=== PATIENT | male | born 1990 | race Asian ===

== ENCOUNTER → 2017-04-05 | Outpatient (CLI) | payer OTHER ==
[~2017-04-05] MED LIST: IBUP-1277 PO
--- NOTE | 2017-04-05 14:25 | DIAGNOSTIC IMAGING REPORT ---
TESTICULAR ULTRASOUND HISTORY: N50.9 Testicular lump no latex allergy COMPARISON: None. FINDINGS: Right testis: 3.2 x 2.2 x 1.5 cm. There are no intratesticular masses. Normal color flow. Trace hydrocele. The epididymis is unremarkable. Left testis: 3.4 x 2.1 x 1.4 cm. There are no intratesticular masses. Normal color flow. Trace hydrocele. A 5 mm epididymal head cyst. IMPRESSION: 1. Normal bilateral testes. 2. A 5 mm left epididymal head cyst. Electronically signed by: Brandon Martin M.D. 04/05/2017 2:24 PM Dictated Date/Time: 04/05/2017 2:22 PM
== END | disposition home or self-care (01) ==
LOC: C.ULTR 13:11
PROVIDERS: ATTEND Urology
DX: N50.3 Cyst of epididymis (principal)

== ENCOUNTER 2020-02-01 16:37 | Inpatient (IN) ==
--- OUTSIDE RECORDS SUMMARY | 2020-02-01 16:40 | External Medical Summary | Continuity of Care Document ---
:1990 Author Name Keon Avila, Provider Address Unavailable Unavailable , Care Team Providers Name Role Phone Unavailable Unavailable Unavailable PCP, NO Unavailable Unavailable Problems Testicular lump (608.89) (N50.89) Allergies and Adverse Reactions Allergy history not documented Medications Medications not documented Procedures Procedures not documented Immunizations Immunizations not documented Family History Mother Family history of diabetes mellitus (V18.0) (Z83.3) Status: Active Family history of hypertension (V17.49) (Z82.49) Status: Act mateo Father Family history of diabetes mellitus (V18.0) (Z83.3) Status: Active Family history of hypertension (V17.49) (Z82.49) Status: Act mateo Grandparent Family history of cardiac disorder (V17.49) (Z82.49) Status: Active Plan of Treatment Planned Observations Planned Goals not documented Results No Known Results Results not documented
[2020-02-01 19:35] LABS: Basophils # (auto) 0.02 K/uL (0-0.2); Basophils % (auto) 0.2 %; Hematocrit (blood only) 57.3 % (42-52); Hemoglobin 19.5 g/dL (14.0-18.0); Immature Granulocytes # (auto) 0.13 K/uL (0.00-0.02); Immature Granulocytes % (auto) 1.6 %; Lymphocytes # (auto) 0.97 K/uL (1.2-3.4); Lymphocytes % (auto) 11.6 %; Mean Corpuscular Hemoglobin 29.2 pg (25-34); Mean Corpuscular Volume 85.9 fL (80-100); Mean Platelet Volume 9.9 fL (7.4-10.4); Monocytes # (auto) 0.34 K/uL (0.11-0.59); Monocytes % (auto) 4.1 %; Neutrophils # (auto) 6.92 K/uL (1.4-6.5); Neutrophils % (auto) 82.5 %; Platelet Count 264 K/uL (130-400); RDW Coefficient of Variation 13.6 % (11.5-14.5); RDW Standard Deviation 42.6 fL (36.4-46.3); Red Blood Count 6.67 M/uL (4.7-6.1); White Blood Count 8.38 K/uL (4.8-10.8)
[2020-02-01] MEDS ORDERED: SODIUM CHLORIDE 0.9% 1000ML 1,000 ML IV STA (19:53)
[2020-02-01] MEDS ORDERED: SODIUM CHLORIDE 0.9% 1000ML 1,000 ML IV ONE (19:53)
[2020-02-01 20:05] LABS: Alanine Aminotransferase 57 U/L (12-78); Albumin Globulin Ratio 1.1 (0.9-2); Alkaline Phosphatase 110 U/L (45-117); Aspartate Aminotransferase 34 U/L (15-37); BUN Creatinine Ratio 7.7 (10-20); Bilirubin,Total 1.3 mg/dl (0.2-1); Blood Urea Nitrogen 14 mg/dl (7-18); Calcium 9.3 mg/dl (8.5-10.1); Carbon Dioxide 13 mmol/L (21-32); Chloride 90 mmol/L (98-107); Creatinine Clr Calc Pharmacy 69.2 ml/min; Est GFR (African American) 56.2; Est GFR (Non-African American) 48.5; Globulin 3.5 gm/dl (2.5-4.0); Glucose 429 mg/dl (70-99); Potassium 4.5 mmol/L (3.5-5.1); Sodium 126 mmol/L (136-145); Total Protein 7.5 gm/dl (6.4-8.2)
[2020-02-01] MEDS ORDERED: SODIUM CHLORIDE 0.9% 500 ML IV ONE (20:10)
[2020-02-01 20:25] LABS: Appearance Urine Clear (Clear); Bacteria Urine Automated Negative (Negative); Bilirubin Urine Negative (Negative); Blood Urine Trace (Negative); Cast Urine Automated 0 /lpf (0-5); Color Urine Yellow; Glucose Urine UA 3+ (Negative); Ketones Urine 4+ (Negative); Leukocyte Esterase Urine Negative (Negative); Nitrite Urine Negative (Negative); Protein Urine 1+ (Negative); RBC Urine Automated 0-4 /hpf (0-4); Specific Gravity Urine 1.034 (1.000-1.030); Urobilinogen Urine Negative (Negative); WBC Urine Automated 0 /hpf (0-5)
[2020-02-01 20:28] LABS: D Dimer 600 ug/L FEU (0-500)
[2020-02-01 20:46] LABS: Creatine Kinase 885 U/L (39-308)
[2020-02-01 20:50] LABS: Troponin I < 0.015 ng/ml (0-0.045)
[2020-02-01] MEDS ORDERED: DKA GOAL RANGE 150-250 mg/dl ONE (20:52)
[2020-02-01] MEDS ORDERED: PHARMACY GLYCEMIC MGMT CONSULT STA ×2 (20:52→22:53)
[2020-02-01] MEDS ORDERED: NORMOSOL-R 1,000 ML IV SCH (21:00)
[2020-02-01] MEDS ORDERED: INSULIN ASPART 100 UNITS/ML 3 ML PEN SC SCH (21:00)
[2020-02-01] MEDS ORDERED: INSULIN REGULAR 250 UNITS in SODIUM CHLORIDE 0.9% 247.5 ML IV SCH (21:00)
--- NOTE | 2020-02-01 21:03 | Emergency Department Note ---
Impression & Plan DKA (diabetic ketoacidoses), Acute dehydration, ISABEL (acute kidney injury) ED Provider Note INFORMANT: Patient ED PROVIDER(S): Norbert Flores MD CHIEF COMPLAINT: Fatigue and visual disturbance PLAN: Disposition: Admitted Condition: Good MEDICAL DECISION MAKING: Patient presented with fatigue, visual disturbance and also noted polydipsia. A work-up was performed and he was found to have findings consistent with DKA with an elevated blood sugar, low CO2, and anion gap. Pseudohyponatremia was noted. He also had a mild elevation of his total CK as well as his creatinine concerning for ISABEL. He was hydrated. Insulin drip was initiated. The patient was informed and hospitalization will be necessary. Discussed the case with Dr. Constantino of internal medicine. The patient was evaluated in the ER admitted for further management. Triage Nursing notes reviewed and agree them. Vital Signs: reviewed and remarkable for hypertension and borderline tachycardia Differential diagnosis: Infection, dehydration, metabolic abnormality, hypo/hyperglycemia, electrolyte disturbance, anemia, hypoxia, cardiac sources, intracerebral event, toxicologic, neurologic, as well as other pathologies. Diagnostics interpreted by me: ECG: Twelve-lead ECG reveals a normal sinus rhythm at [address] and T wave abnormality. No ST elevation or depression. Cardiac Monitoring: None Imaging studies: Chest x-ray. Findings: A chest x-ray was performed and revealed no pneumothorax, effusion, infiltrate, pulmonary edema, free air under the diaphragm, or wide mediastinum. Impression: No acute disease. Consultation(s): Dr. Constantino of internal medicine HPI: The patient is a 30 year old male who presents to the Emergency Room with complaints of fatigue. This started 5 days and is worsening. The patient also notes the following associated symptoms, blurry vision, polydipsia, generalized myalgias, shortness of breath, no energy, increased sleeping. Patient also noted reflux symptoms of chest discomfort which is unusual for him. He did try Pepcid without relief. The patient has found no relieving factors for the fatigue. Current pain is rated as 0/10. Patient does have a family history of diabetes. He also notes he was told he has high blood pressure in the past but is not on any medication for this. Patient denies any Covid exposures. Pt denies LOC, headache, fevers, chills, diaphoresis, neck pain, current chest pain, nausea, vomiting, abdominal pain, back pain, melena, hematochezia, urinary symptoms, numbness, lymphadenopathy, rash, or other complaints. ROS: See above HPI for pertinent positives & negatives. A total of 10 systems reviewed and were otherwise negative. PAST MEDICAL HISTORY:See Below, high blood pressure PAST SURGICAL HISTORY:See Below, patient denies FAMILY HISTORY:See Below SOCIAL HISTORY:See Below, no smoking. [employer] student. HOME MEDICATIONS:See Below ALLERGIES:See Below VITALS:See Below PHYSICAL EXAMINATION: GENERAL: Awake, tired-appearing, in no distress HENT: Normocephalic, atraumatic. Oropharynx unremarkable. EYES: Normal conjunctiva. Sclera non-icteric. NECK: Inspection normal. Non-tender. Supple. No nuchal rigidity. FROM. No masses. RESPIRATORY: Clear to auscultation. No wheezes. No rales. Normal respiratory effort. CARDIAC: Normal rate. Normal rhythm. No murmurs. No rubs. Extremities warm and well perfused. Pulses equal. No JVD. GI: Soft, non-distended. No tenderness to palpation. No rebound or guarding. No masses. RECTAL: Deferred. MUSCULOSKELETAL: Atraumatic. Chest examination reveals no tenderness. The back is symmetrical on inspection without obvious abnormality. There is no CVA tenderness to palpation. No joint edema. LOWER EXTREMITIES: Calves are equal size bilaterally and non-tender. No edema. No discoloration. NEURO: Normal sensorium. No sensory or motor deficits noted. SKIN: No rash or jaundice noted. ED COURSE: Critical Care: I have personally spent greater than 30 minutes of critical care time in the direct management of this patient. This includes bedside care, interpretation of diagnostic studies, and testing, discussion with consultants, patient, and other required patient management activities. These minutes are in excess of all separately billable procedures. Norbert Flores MD Past Med/Surg History Social History Smoking Status: Never smoker Hx Alcohol Use: No Hx Substance Use: No Preferred Language: Syriac Communication Ability: Effective Sword Swallower Required: No Beliefs That Will Affect Care: None Current Living Situation: Alone Current Living Situation Comment: Appartment Other Information That Helps Us Care for You: No Feels Safe at Home: Yes Safety Concerns: Feels Safe At This Time Assistive Devices: None Allergies Allergies Allergy/AdvReac Type Severity Reaction Status Date / Time No Known Allergies Allergy Unverified 02/01/20 20:55 Home Meds Home Medications Medication Instructions Recorded Confirmed methylphenidate HCl [Ritalin SR] See Rx Instructions .ROUTE .COMPLEX 02/01/20 02/01/20 Results & Data (ED) Vital Signs Vital Signs - 24 hr 02/01/20 17:24 02/01/20 19:23 02/01/20 19:30 Temperature 37.1 C Temperature Source Oral Pulse Rate 114 H 99 H 98 H Respiratory Rate 18 21 21 Blood Pressure 160/109 H 183/109 H 187/108 H Blood Pressure Mean 126 131 122 Pulse Oximetry 97 100 100 Oxygen Delivery Method Room Air Sepsis Recent Fever Within 48 Hours No Sepsis New/Unexplained Change in Mental Status N/A Sepsis Action Taken by Nursing No Action Required 02/01/20 20:00 02/01/20 20:30 02/01/20 22:00 Temperature Temperature Source Pulse Rate 96 H 100 H 97 H Respiratory Rate 25 H 18 24 Blood Pressure 184/101 H 170/94 H 170/90 H Blood Pressure Mean 120 112 111 Pulse Oximetry 99 100 99 Oxygen Delivery Method Sepsis Recent Fever Within 48 Hours Sepsis New/Unexplained Change in Mental Status Sepsis Action Taken by Nursing 02/01/20 22:36 Temperature Temperature Source Pulse Rate 102 H Respiratory Rate 24 Blood Pressure 164/85 H Blood Pressure Mean 108 Pulse Oximetry 100 Oxygen Delivery Method Sepsis Recent Fever Within 48 Hours Sepsis New/Unexplained Change in Mental Status Sepsis Action Taken by Nursing Laboratory Data Result diagrams: 02/01/20 19:25 02/01/20 23:02 Lab Results 02/01/20 02/01/20 02/01/20 Range/Units 19:25 19:25 19:25 WBC 8.38 (4.8-10.8) K/uL RBC 6.67 H (4.7-6.1) M/uL Hgb 19.5 H (14.0-18.0) g/dL Hct 57.3 H (42-52) % MCV 85.9 (80-100) fL MCH 29.2 (25-34) pg MCHC 34.0 (32-36) g/dL RDW Std Deviation 42.6 (36.4-46.3) fL RDW Coeff of Victor Hugo 13.6 (11.5-14.5) % Plt Count 264 (130-400) K/uL MPV 9.9 (7.4-10.4) fL Immature Gran % (Auto) 1.6 % Neut % (Auto) 82.5 % Lymph % (Auto) 11.6 % [place] % (Auto) 4.1 % Eos % (Auto) 0.0 % Baso % (Auto) 0.2 % Neut # (Auto) 6.92 H (1.4-6.5) K/uL Lymph # (Auto) 0.97 L (1.2-3.4) K/uL [place] # (Auto) 0.34 (0.11-0.59) K/uL Eos # (Auto) 0.00 (0-0.5) K/uL Baso # (Auto) 0.02 (0-0.2) K/uL Immature Gran # (Auto) 0.13 H (0.00-0.02) K/uL D-Dimer 600 H* (0-500) ug/L FEU VBG pH (7.36-7.41) Sodium 126 L (136-145) mmol/L Potassium 4.5 (3.5-5.1) mmol/L Chloride 90 L (98-107) mmol/L Carbon Dioxide 13 L (21-32) mmol/L Anion Gap 23.0 H (3-11) BUN 14 (7-18) mg/dl Creatinine 1.85 H (0.6-1.4) mg/dl Est Cr Clr Drug Dosing 69.2 ml/min Est GFR ( Amer) 56.2 Est GFR (Non-Af Amer) 48.5 BUN/Creatinine Ratio 7.7 L (10-20) Glucose 429 H* (70-99) mg/dl POC Glucose (70-99) mg/dl Calcium 9.3 (8.5-10.1) mg/dl Phosphorus (2.5-4.9) mg/dl Magnesium (1.8-2.4) mg/dl Total Bilirubin 1.3 H (0.2-1) mg/dl AST 34 (15-37) U/L ALT 57 (12-78) U/L Alkaline Phosphatase 110 (45-117) U/L Total Creatine Kinase 885 H (39-308) U/L Troponin I < 0.015 (0-0.045) ng/ml Total Protein 7.5 (6.4-8.2) gm/dl Albumin 4.0 (3.4-5.0) gm/dl Globulin 3.5 (2.5-4.0) gm/dl Albumin/Globulin Ratio 1.1 (0.9-2) Beta-Hydroxybutyric Acd TNP Urine Color Urine Appearance (Clear) Urine pH (4.5-7.5) Ur Specific [place] (1.000-1.030) Urine Protein (Negative) Urine Glucose (UA) (Negative) Urine Ketones (Negative) Urine Blood (Negative) Urine Nitrite (Negative) Urine Bilirubin (Negative) Urine Urobilinogen (Negative) Ur Leukocyte Esterase (Negative) Urine WBC (Auto) (0-5) /hpf Urine RBC (Auto) (0-4) /hpf U Hyaline Cast (Auto) (0-5) /lpf U Epithel Cells (Auto) (0-5) /lpf Urine Bacteria (Auto) (Negative) COVID-19 Eval Order SARS-CoV-2, RNA, NAAT (NEGATIVE) 02/01/20 02/01/20 02/01/20 Range/Units 19:25 20:11 20:11 WBC (4.8-10.8) K/uL RBC (4.7-6.1) M/uL Hgb (14.0-18.0) g/dL Hct (42-52) % MCV (80-100) fL MCH (25-34) pg MCHC (32-36) g/dL RDW Std Deviation (36.4-46.3) fL RDW Coeff of Victor Hugo (11.5-14.5) % Plt Count (130-400) K/uL MPV (7.4-10.4) fL Immature Gran % (Auto) % Neut % (Auto) % Lymph % (Auto) % [place] % (Auto) % Eos % (Auto) % Baso % (Auto) % Neut # (Auto) (1.4-6.5) K/uL Lymph # (Auto) (1.2-3.4) K/uL [place] # (Auto) (0.11-0.59) K/uL Eos # (Auto) (0-0.5) K/uL Baso # (Auto) (0-0.2) K/uL Immature Gran # (Auto) (0.00-0.02) K/uL D-Dimer (0-500) ug/L FEU VBG pH (7.36-7.41) Sodium (136-145) mmol/L Potassium (3.5-5.1) mmol/L Chloride (98-107) mmol/L Carbon Dioxide (21-32) mmol/L Anion Gap (3-11) BUN (7-18) mg/dl Creatinine (0.6-1.4) mg/dl Est Cr Clr Drug Dosing ml/min Est GFR ( Amer) Est GFR (Non-Af Amer) BUN/Creatinine Ratio (10-20) Glucose (70-99) mg/dl POC Glucose (70-99) mg/dl Calcium (8.5-10.1) mg/dl Phosphorus (2.5-4.9) mg/dl Magnesium (1.8-2.4) mg/dl Total Bilirubin (0.2-1) mg/dl AST (15-37) U/L ALT (12-78) U/L Alkaline Phosphatase (45-117) U/L Total Creatine Kinase Cancelled (39-308) U/L Troponin I Cancelled (0-0.045) ng/ml Total Protein (6.4-8.2) gm/dl Albumin (3.4-5.0) gm/dl Globulin (2.5-4.0) gm/dl Albumin/Globulin Ratio (0.9-2) Beta-Hydroxybutyric Acd Urine Color Yellow Urine Appearance Clear (Clear) Urine pH 5.0 (4.5-7.5) Ur Specific [place] 1.034 H (1.000-1.030) Urine Protein 1+ H (Negative) Urine Glucose (UA) 3+ H (Negative) Urine Ketones 4+ H (Negative) Urine Blood Trace H (Negative) Urine Nitrite Negative (Negative) Urine Bilirubin Negative (Negative) Urine Urobilinogen Negative (Negative) Ur Leukocyte Esterase Negative (Negative) Urine WBC (Auto) 0 (0-5) /hpf Urine RBC (Auto) 0-4 (0-4) /hpf U Hyaline Cast (Auto) 0 (0-5) /lpf U Epithel Cells (Auto) 5-10 H (0-5) /lpf Urine Bacteria (Auto) Negative (Negative) COVID[facility]19 [facility] SARS-CoV-2, RNA, NAAT (NEGATIVE) 02/01/20 02/01/20 02/01/20 Range/Units 20:11 21:36 21:36 WBC (4.8-10.8) K/uL RBC (4.7-6.1) M/uL Hgb (14.0-18.0) g/dL Hct (42-52) % MCV (80-100) fL MCH (25-34) pg MCHC (32-36) g/dL RDW Std Deviation (36.4-46.3) fL RDW Coeff of Victor Hugo (11.5-14.5) % Plt Count (130-400) K/uL MPV (7.4-10.4) fL Immature Gran % (Auto) % Neut % (Auto) % Lymph % (Auto) % [place] % (Auto) % Eos % (Auto) % Baso % (Auto) % Neut # (Auto) (1.4-6.5) K/uL Lymph # (Auto) (1.2-3.4) K/uL [place] # (Auto) (0.11-0.59) K/uL Eos # (Auto) (0-0.5) K/uL Baso # (Auto) (0-0.2) K/uL Immature Gran # (Auto) (0.00-0.02) K/uL D-Dimer (0-500) ug/L FEU VBG pH 7.25 L (7.36-7.41) Sodium 129 L (136-145) mmol/L Potassium (3.5-5.1) mmol/L Chloride 96 L (98-107) mmol/L Carbon Dioxide 13 L (21-32) mmol/L Anion Gap 20.0 H (3-11) BUN 15 (7-18) mg/dl Creatinine 1.77 H (0.6-1.4) mg/dl Est Cr Clr Drug Dosing 72.3 ml/min Est GFR ( Amer) 59.3 Est GFR (Non-Af Amer) 51.1 BUN/Creatinine Ratio 8.4 L (10-20) Glucose 369 H* (70-99) mg/dl POC Glucose (70-99) mg/dl Calcium 8.3 L (8.5-10.1) mg/dl Phosphorus 3.1 (2.5-4.9) mg/dl Magnesium (1.8-2.4) mg/dl Total Bilirubin (0.2-1) mg/dl AST (15-37) U/L ALT (12-78) U/L Alkaline Phosphatase (45-117) U/L Total Creatine Kinase (39-308) U/L Troponin I (0-0.045) ng/ml Total Protein (6.4-8.2) gm/dl Albumin (3.4-5.0) gm/dl Globulin (2.5-4.0) gm/dl Albumin/Globulin Ratio (0.9-2) Beta-Hydroxybutyric Acd Urine Color Urine Appearance (Clear) Urine pH (4.5-7.5) Ur Specific [place] (1.000-1.030) Urine Protein (Negative) Urine Glucose (UA) (Negative) Urine Ketones (Negative) Urine Blood (Negative) Urine Nitrite (Negative) Urine Bilirubin (Negative) Urine Urobilinogen (Negative) Ur Leukocyte Esterase (Negative) Urine WBC (Auto) (0-5) /hpf Urine RBC (Auto) (0-4) /hpf U Hyaline Cast (Auto) (0-5) /lpf U Epithel Cells (Auto) (0-5) /lpf Urine Bacteria (Auto) (Negative) COVID-19 Eval Order SARS-CoV-2, RNA, NAAT NEGATIVE (NEGATIVE) 02/01/20 Range/Units 21:54 WBC (4.8-10.8) K/uL RBC (4.7-6.1) M/uL Hgb (14.0-18.0) g/dL Hct (42-52) % MCV (80-100) fL MCH (25-34) pg MCHC (32-36) g/dL RDW Std Deviation (36.4-46.3) fL RDW Coeff of Victor Hugo (11.5-14.5) % Plt Count (130-400) K/uL MPV (7.4-10.4) fL Immature Gran % (Auto) % Neut % (Auto) % Lymph % (Auto) % [place] % (Auto) % Eos % (Auto) % Baso % (Auto) % Neut # (Auto) (1.4-6.5) K/uL Lymph # (Auto) (1.2-3.4) K/uL [place] # (Auto) (0.11-0.59) K/uL Eos # (Auto) (0-0.5) K/uL Baso # (Auto) (0-0.2) K/uL Immature Gran # (Auto) (0.00-0.02) K/uL D-Dimer (0-500) ug/L FEU VBG pH (7.36-7.41) Sodium (136-145) mmol/L Potassium (3.5-5.1) mmol/L Chloride (98-107) mmol/L Carbon Dioxide (21-32) mmol/L Anion Gap (3-11) BUN (7-18) mg/dl Creatinine (0.6-1.4) mg/dl Est Cr Clr Drug Dosing ml/min Est GFR ( Amer) Est GFR (Non-Af Amer) BUN/Creatinine Ratio (10-20) Glucose (70-99) mg/dl POC Glucose 417 H* (70-99) mg/dl Calcium (8.5-10.1) mg/dl Phosphorus (2.5-4.9) mg/dl Magnesium (1.8-2.4) mg/dl Total Bilirubin (0.2-1) mg/dl AST (15-37) U/L ALT (12-78) U/L Alkaline Phosphatase (45-117) U/L Total Creatine Kinase (39-308) U/L Troponin I (0-0.045) ng/ml Total Protein (6.4-8.2) gm/dl Albumin (3.4-5.0) gm/dl Globulin (2.5-4.0) gm/dl Albumin/Globulin Ratio (0.9-2) Beta-Hydroxybutyric Acd Urine Color Urine Appearance (Clear) Urine pH (4.5-7.5) Ur Specific [place] (1.000-1.030) Urine Protein (Negative) Urine Glucose (UA) (Negative) Urine Ketones (Negative) Urine Blood (Negative) Urine Nitrite (Negative) Urine Bilirubin (Negative) Urine Urobilinogen (Negative) Ur Leukocyte Esterase (Negative) Urine WBC (Auto) (0-5) /hpf Urine RBC (Auto) (0-4) /hpf U Hyaline Cast (Auto) (0-5) /lpf U Epithel Cells (Auto) (0-5) /lpf Urine Bacteria (Auto) (Negative) COVID-19 Eval Order SARS-CoV-2, RNA, NAAT (NEGATIVE) Administered Medications Sodium Chloride (Nss 1000ml) 1,000 mls @ 125 mls/hr IV .Q8H STA Stop: 02/02/20 03:52 Last Admin: 02/01/20 21:48 Dose: Not Given Documented by: [id number] Insulin Human Regular 250 (units/ Sodium Chloride) 250 mls @ 9.6 mls/hr IV .Q24H OMERO; Protocol Stop: 03/02/20 20:59 Last Admin: 02/01/20 21:55 Dose: 9.6 units/hr, 9.6 mls/hr Documented by: [id number] Cosigned by: [id number] Parenteral Electrolytes (Normosol-R) 1,000 mls @ 125 mls/hr IV .Q8H OMERO Stop: 03/02/20 20:59 Last Admin: 02/01/20 21:50 Dose: 125 mls/hr Documented by: [id number] Discontinued Medications Al Hydrox/Mg Hydrox/Simethicone (Aluminum/Magnesium Susp 30 Ml Udc) 30 ml PO NOW STA Stop: 02/01/20 21:28 Last Admin: 02/01/20 21:46 Dose: 30 ml Documented by: [id number] Sodium Chloride (Nss 1000ml) 1,000 mls @ 999 mls/hr IV .Q1H1M ONE Stop: 02/01/20 20:53 Last Infusion: 02/01/20 21:09 Dose: 0 mls/hr Documented by: [id number] Admin: 02/01/20 20:08 Dose: 999 mls/hr Documented by: [id number] Sodium Chloride (Nss) 500 mls @ 999 mls/hr IV .Q31M ONE Stop: 02/01/20 20:40 Last Admin: 02/01/20 22:00 Dose: Not Given Documented by: [id number] Insulin Human Regular (Novolin-R Bolus From Bag) 9 units IV ONE ONE Stop: 02/01/20 21:16 Last Admin: 02/01/20 21:56 Dose: 9 units Documented by: [id number] Cosigned by: [id number] Miscellaneous (Dka Goal Range 150-250 Mg/Dl) 1 ea N/A ONE ONE Stop: 02/01/20 20:53 Last Admin: 02/01/20 22:00 Dose: 1 ea Documented by: [id number] Miscellaneous Information (Pharmacy Glycemic Mgmt Consult) 1 ea N/A NOW STA Stop: 02/01/20 20:53 Last Admin: 02/01/20 22:00 Dose: 1 ea Documented by: [id number] Discharge Plan Visit Data Chief Complaint: Visual Disturbance Stated Complaint: BLURRY VISION, FATIGUE ED Provider: Norbert Flores Discharge Problem: DKA (diabetic ketoacidoses), Acute dehydration, ISABEL (acute kidney injury) Patient Disposition: Admitted As Inpatient Discharge Instructions Interventions: ED Discharge Assessment Last Done: 02/02/20 00:00
--- NOTE | 2020-02-01 21:11 | XRay Report ---
SINGLE VIEW CHEST CLINICAL HISTORY: Dyspnea. Epigastric abdominal pain. FINDINGS: An AP, portable, upright chest radiograph is obtained. No prior studies are available for c omparison at the time of dictation. The cardiomediastinal silhouette is unremarkable. The lungs and pleural spaces are clear. No pneumothorax is seen. The bony thorax is grossly intact. IMPRESSION: No active disease in the chest. ACT 112: Negative or not required by law. Electronically signed by: Zac Kwan M.D. 02/01/2020 9:10 PM
[2020-02-01] MEDS ORDERED: GLUCOSE 10 TABS/TUBE PO PRN (21:15)
[2020-02-01] MEDS ORDERED: CARBOHYDRATES FOR HYPOGLYCEMIA PO PRN (21:15)
[2020-02-01] MEDS ORDERED: NovoLIN-R BOLUS FROM BAG IV ONE (21:15)
[2020-02-01] MEDS ORDERED: GLUCOSE 40% GEL 15 GM TUBE PO PRN (21:15)
[2020-02-01] MEDS ORDERED: GLUCAGON FOR INJ 1 MG VIAL IM PRN (21:15)
[2020-02-01] MEDS ORDERED: DEXTROSE 50% 50 ML SYRINGE IV PRN (21:15)
[2020-02-01] MEDS ORDERED: ALUMINUM/MAGNESIUM SUSP 30 ML UDC PO STA (21:27)
[2020-02-01 22:21] LABS: BUN Creatinine Ratio 8.4 (10-20); Calcium 8.3 mg/dl (8.5-10.1); Creatinine Clr Calc Pharmacy 72.3 ml/min; Est GFR (African American) 59.3; Est GFR (Non-African American) 51.1; Phosphorus 3.1 mg/dl (2.5-4.9)
--- NOTE | 2020-02-01 23:03 | History & Physical Report ---
Date of Service February 01, 2020 Assessment & Plan (1) DKA (diabetic ketoacidoses): Mr. Gildardo Javed is a very polite 30 y/o male with past medical hx of ADHD who presented to [facility] ED for CC of Fatigue and Heart Burn, who presents with DKA and new onset DM. - Suspect DM1. 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 He notes ketosis diet which was high proteins/fats without carbs. He noted carb loading two days prior to illness, which I suspect was triggering factor for acute presentation. He has a strong family history of DM. This does seem atypical of DM1 presentation with consideration that he is 30 y/o. He is very active/athletic/has great insight to dietary intake. He does not have typical appearance of a new DM2 as his weight is muscle more than adipose. - Will get DM1 workup with autoantibodies of insulin, decarboxylase. I was not able to find other labs recommended in literature such as IA2, ZnT8. I did get a C-peptide lab as classically would expect elevated in DM2 but not in DM1, but note that literature hyperglycemia could suppress C-peptide in acute illness in a DM2, would recommend outpatient C-peptide as well. Will continue with getting Cpeptide as high level would lead considerations to DM2. - Hgb A1C ordered, Lipid panel ordered (notes strong family hx of HLD). - Hypertensive and tachycardic from acute dehydration improving with IV fluids, continue with aggressive IV hydration. - Pharmacy Consult placed for insulin management. AG in ED was 23 which improved to 20. - DKA order set used with respect to electrolyte management. - Notes feeling improved with treatment thus far. - Field Operations Farm Manager consulted - Emotional support offered as notes feeling devastated about new diagnosis, no reason for him to feel guilty as most likely caused by genetic predispositon. - Note that D-dimer was positive in ED, was ordered for dyspnea during initial workup. His dyspnea has improved with treatment. Dyspnea was respiratory compensation for metabolic acidosis with elevated Anion Gap. D-dimer most likely positive from acute illness. There is no current consideration for need to order CTA PE rule out. - DKA diagnosis supported by Beta-hydroxybut acid level of Too Numerous to Process!!!; Ketones in Urine, Acidotic VBG pH. Do not feel need to cause patient to be subjected to ABG at this time as that is painful. Also, initial Glucose lab value from metabolic panel was 429. - No current PCP, will need help with establishing as will need follow up. Acute Dehydration - Continue with tele to help in aid with fluid management as tachycardia will improve/resolve with IVF as noted above. Acute Kidney Injury - ISABEL of 1.85, no prior baseline but suspect a baseline WNL. Improved on second blood draw in ED with IVF treatment. Trend. - Note Elevated CK of 885 most likely from protein breakdown in hyperglycemic state. Trend in AM. Hyponatremia - Most likely component of pseudohyponatremia from hypergylcemia. Trend. Exp ect to resolve with management of DKA. FENGI: DM1 Diet, 1L NSS Bolus followed by Normosol IVF @ 125 ml/hr. Maalox for heartburn PRN. Code: Full Code DVT ppx: young, fit, ambulatory, low risk for DVT, no treatment currently ordered. Dispo: PCU/Tele, Full Admit (2) ISABEL (acute kidney injury): (3) Acute dehydration: (4) Hyponatremia: (5) Elevated creatine kinase: History of Present Illness Chief Complaint: DKA/Fatigue Primary Care Provider: NO PCP Mr. Gildardo Javed is a 30 y/o male with past medical hx of ADHD who presented to [facility] ED for CC of Fatigue and Heart Burn. He notes fatigue started about 5 days ago Tuesday. 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 He was on a ketosis diet for the past 4 weeks until Tuesday when he was carbohydrate loading Tuesday-Tuesday. He notes he has done this routine over 50 times in the past with out incident. He notes that he became extremely fatigued and started requiring more sleep starting Tuesday. He notes he even slept after taking his Ritalin which was atypical. He notes that he usually drinks one galloon of water per day, but had polydipsia and was requiring 2-3 Galloons of water per day. He notes he had polyuria as well. He noted feeling short of breath with activity and had very bad heartburn with associated nausea and vomiting, which made him to come here to [facility] ED. He notes he was concerned that heartburn could've been an ID bc of family history of high cholesterol. He spoke with his two sisters this week who are pharmacists who said symptoms were related to stress from high demand of educational duties (Studies Computer science), tutoring, fitness activities, which delayed him seeking medical evaluation. He notes a very strong family history of diabetes including both his parents and other grandparents. In the ED, he received IV Fluids 1L Bolus and normosol 125ml/hr along with insulin drip and Maalox which has help to provide relief from heart burn. He notes that he already feels improved with treatment thus far. Iniital Lab Values in ED, Na 126, K 4.5, Cl 90, CO2 13, Creatinine 1.85, Glucose 439, AG 23, CK 885, B-Hydroxy TNP. UA showed ketones, glucose. He was COVID tested in the ED and was negative. Allergies Allergy/AdvReac Type Severity Reaction Status Date / Time No Known Allergies Allergy Unverified 02/01/20 20:55 Home Medications Medication Instructions Recorded Confirmed Type methylphenidate HCl [Ritalin SR] See Rx Instructions .ROUTE .COMPLEX 02/01/20 02/01/20 History Past Med/Surg History Social History Smoking Status: Never smoker Hx Alcohol Use: No Hx Substance Use: No Preferred Language: Faroese Communication Ability: Effective Manager Oracle Required: No Beliefs That Will Affect Care: None Current Living Situation: Alone Current Living Situation Comment: Appartment Other Information That Helps Us Care for You: No Feels Safe at Home: Yes Safety Concerns: Feels Safe At This Time Assistive Devices: None Review of Systems Review of Systems: All systems reviewed & are unremarkable except as noted in HPI & below Constitutional: + malaise; no fever and no chills Eyes: + problem reported (blurry); no discharge Ear, Nose, Mouth, Throat: no bleeding gums and no sore throat Respiratory: no cough and no hemoptysis Cardiovascular: no chest pain and no syncope Gastrointestinal: + heartburn, + nausea and + vomiting Genitourinary: + urinary frequency; no dysuria Musculoskeletal: no back pain and no neck pain Integumentary: no rash and no new lesions Neurologic: no numbness, no headache(s) and no confusion Endocrine: + polydipsia and + polyuria Physical Exam Constitutional: + ill appearing, cooperative and comfortable; no acute distress Eyes: PERRL, conjunctivae normal, anicteric sclerae ENMT: dry mucous membranes Neck: normal visual inspection; + trachea not midline and no tracheal deviation Respiratory: normal respiratory effort, lungs clear to auscultation Cardiovascular: Rate/Rhythm: regular rhythm and + tachycardic (mild 101) Heart Sounds: no murmur Extremities: no calf tenderness and no pedal edema Gastrointestinal (Abdomen): Inspection/Auscultation: abdomen normal to inspection Percussion/Palpation: abdomen soft; abdomen nontender, no guarding and abdomen not rigid Musculoskeletal: no cyanosis or clubbing, extremities motor strength 5/5 muscular build Skin: no rashes, warm and dry Neurologic: moves all extremities and awake Psychiatric: Orientation: alert and oriented x 3 Eye Contact: good eye contact Estimated Intelligence: + above average estimated intelligence Insight: excellent insight Judgement: excellent judgement very polite, notes feels of devastation with new diagnosis Results & Data Results & Data ([facility]) Vital Signs (Past 12 Hours) Vital Signs Temp Pulse Resp BP Pulse Ox 02/01/20 22:36 102 H 24 164/85 H 100 02/01/20 22:00 97 H 24 170/90 H 99 02/01/20 20:30 100 H 18 170/94 H 100 02/01/20 20:00 96 H 25 H 184/101 H 99 02/01/20 19:30 98 H 21 187/108 H 100 02/01/20 19:23 99 H 21 183/109 H 100 02/01/20 17:24 37.1 C 114 H 18 160/109 H 97 Laboratory Results Laboratory Results - last 24 hr 02/01/20 02/01/20 02/01/20 19:25 19:25 19:25 WBC 8.38 RBC 6.67 H Hgb 19.5 H Hct 57.3 H MCV 85.9 MCH 29.2 MCHC 34.0 RDW Std Deviation 42.6 RDW Coeff of Victor Hugo 13.6 Plt Count 264 MPV 9.9 Immature Gran % (Auto) 1.6 Neut % (Auto) 82.5 Lymph % (Auto) 11.6 Vance % (Auto) 4.1 Eos % (Auto) 0.0 Baso % (Auto) 0.2 Neut # (Auto) 6.92 H Lymph # (Auto) 0.97 L Vance # (Auto) 0.34 Eos # (Auto) 0.00 Baso # (Auto) 0.02 Immature Gran # (Auto) 0.13 H D-Dimer 600 H* VBG pH Sodium 126 L Potassium 4.5 Chloride 90 L Carbon Dioxide 13 L Anion Gap 23.0 H BUN 14 Creatinine 1.85 H Est Cr Clr Drug Dosing 69.2 Est GFR ( Amer) 56.2 Est GFR (Non-Af Amer) 48.5 BUN/Creatinine Ratio 7.7 L Glucose 429 H* POC Glucose Calcium 9.3 Phosphorus Magnesium Total Bilirubin 1.3 H AST 34 ALT 57 Alkaline Phosphatase 110 Total Creatine Kinase 885 H Troponin I < 0.015 Total Protein 7.5 Albumin 4.0 Globulin 3.5 Albumin/Globulin Ratio 1.1 Beta-Hydroxybutyric Acd TNP Urine Color Urine Appearance Urine pH Ur Specific [place] Urine Protein Urine Glucose (UA) Urine Ketones Urine Blood Urine Nitrite Urine Bilirubin Urine Urobilinogen Ur Leukocyte Esterase Urine WBC (Auto) Urine RBC (Auto) U Hyaline Cast (Auto) U Epithel Cells (Auto) Urine Bacteria (Auto) COVID-19 Eval Order SARS-CoV-2, RNA, NAAT 02/01/20 02/01/20 02/01/20 19:25 20:11 20:11 WBC RBC Hgb Hct MCV MCH MCHC RDW Std Deviation RDW Coeff of Victor Hugo Plt Count MPV Immature Gran % (Auto) Neut % (Auto) Lymph % (Auto) Vance % (Auto) Eos % (Auto) Baso % (Auto) Neut # (Auto) Lymph # (Auto) Vance # (Auto) Eos # (Auto) Baso # (Auto) Immature Gran # (Auto) D-Dimer VBG pH Sodium Potassium Chloride Carbon Dioxide Anion Gap BUN Creatinine Est Cr Clr Drug Dosing Est GFR ( Amer) Est GFR (Non-Af Amer) BUN/Creatinine Ratio Glucose POC Glucose Calcium Phosphorus Magnesium Total Bilirubin AST ALT Alkaline Phosphatase Total Creatine Kinase Cancelled Troponin I Cancelled Total Protein Albumin Globulin Albumin/Globulin Ratio Beta-Hydroxybutyric Acd Urine Color Yellow Urine Appearance Clear Urine pH 5.0 Ur Specific [place] 1.034 H Urine Protein 1+ H Urine Glucose (UA) 3+ H Urine Ketones 4+ H Urine Blood Trace H Urine Nitrite Negative Urine Bilirubin Negative Urine Urobilinogen Negative Ur Leukocyte Esterase Negative Urine WBC (Auto) 0 Urine RBC (Auto) 0-4 U Hyaline Cast (Auto) 0 U Epithel Cells (Auto) 5-10 H Urine Bacteria (Auto) Negative COVID-19 Eval [facility] SARS-[facility], RNA, NAAT 02/01/20 02/01/20 02/01/20 20:11 21:36 21:36 WBC RBC Hgb Hct MCV MCH MCHC RDW Std Deviation RDW Coeff of Victor Hugo Plt Count MPV Immature Gran % (Auto) Neut % (Auto) Lymph % (Auto) Vance % (Auto) Eos % (Auto) Baso % (Auto) Neut # (Auto) Lymph # (Auto) Vance # (Auto) Eos # (Auto) Baso # (Auto) Immature Gran # (Auto) D-Dimer VBG pH 7.25 L Sodium 129 L Potassium Chloride 96 L Carbon Dioxide 13 L Anion Gap 20.0 H BUN 15 Creatinine 1.77 H Est Cr Clr Drug Dosing 72.3 Est GFR ( Amer) 59.3 Est GFR (Non-Af Amer) 51.1 BUN/Creatinine Ratio 8.4 L Glucose 369 H* POC Glucose Calcium 8.3 L Phosphorus 3.1 Magnesium Total Bilirubin AST ALT Alkaline Phosphatase Total Creatine Kinase Troponin I Total Protein Albumin Globulin Albumin/Globulin Ratio Beta-Hydroxybutyric Acd Urine Color Urine Appearance Urine pH Ur Specific [place] Urine Protein Urine Glucose (UA) Urine Ketones Urine Blood Urine Nitrite Urine Bilirubin Urine Urobilinogen Ur Leukocyte Esterase Urine WBC (Auto) Urine RBC (Auto) U Hyaline Cast (Auto) U Epithel Cells (Auto) Urine Bacteria (Auto) COVID-19 Eval Order SARS-CoV-2, RNA, NAAT NEGATIVE 02/01/20 02/01/20 02/01/20 21:54 22:57 23:02 WBC RBC Hgb Hct MCV MCH MCHC RDW Std Deviation RDW Coeff of Victor Hugo Plt Count MPV Immature Gran % (Auto) Neut % (Auto) Lymph % (Auto) Vance % (Auto) Eos % (Auto) Baso % (Auto) Neut # (Auto) Lymph # (Auto) Vance # (Auto) Eos # (Auto) Baso # (Auto) Immature Gran # (Auto) D-Dimer VBG pH Sodium Potassium Pending Chloride Carbon Dioxide Anion Gap BUN Creatinine Est Cr Clr Drug Dosing Est GFR ( Amer) Est GFR (Non-Af Amer) BUN/Creatinine Ratio Glucose POC Glucose 417 H* 355 H* Calcium Phosphorus Magnesium Pending Total Bilirubin AST ALT Alkaline Phosphatase Total Creatine Kinase Troponin I Total Protein Albumin Globulin Albumin/Globulin Ratio Beta-Hydroxybutyric Acd Urine Color Urine Appearance Urine pH Ur Specific [place] Urine Protein Urine Glucose (UA) Urine Ketones Urine Blood Urine Nitrite Urine Bilirubin Urine Urobilinogen Ur Leukocyte Esterase Urine WBC (Auto) Urine RBC (Auto) U Hyaline Cast (Auto) U Epithel Cells (Auto) Urine Bacteria (Auto) COVID-19 Eval Order SARS-CoV-2, RNA, NAAT Diagnostic Findings CXR performed in ED: No acute disease Medications Administered Sodium Chloride (Nss 1000ml) 1,000 mls @ 125 mls/hr IV .Q8H STA Stop: 02/02/20 03:52 Last Admin: 02/01/20 21:48 Dose: Not Given Documented by: [id number] Insulin Human Regular 250 (units/ Sodium Chloride) 250 mls @ 9.6 mls/hr IV .Q24H OMERO; Protocol Stop: 03/02/20 20:59 Last Admin: 02/01/20 21:55 Dose: 9.6 units/hr, 9.6 mls/hr Documented by: [id number] Cosigned by: [id number] Parenteral Electrolytes (Normosol-R) 1,000 mls @ 125 mls/hr IV .Q8H OMERO Stop: 03/02/20 20:59 Last Admin: 02/01/20 21:50 Dose: 125 mls/hr Documented by: [id number] Code Status & VTE Plan Code Status Full Code VTE Prophylaxis Plan VTE Prophylaxis will be ordered: No Reason for no VTE drug order: Treatment not indicated Reason for no VTE mechanical prophylaxis: Treatment not indicated Supervising Physician Co-Signing Physician Notes Patient seen and examined, chart reviewed, case discussed with Dr. Lau and I agree with his assessment and plan as documented above. Briefly, patient is a 30yo male with no significant past medical history presenting in DKA. Patient with strong family history of DM. He reports polydipsia as well as blurry vision for the last week as well as fatigue and SOB. Patient had been on ketogenic diet and just started carb loading. On exam he is afebrile, HD stable, NAD Dry mm +S1/S2, regular, no m/r/g Lungs CTA Abd - +BS, soft, NT/ND Ext - No edema Labs with AGMA, +ketones and BHB, pH=7.25 +ddimer, elevated CK Covid-19 NEGATIVE Assessment/Plan - 30yo male with DKA, new onset DM - suspect Type I - patient with strong family history of the same. He is fit, active and quite health conscious. -Check anti-CHIKIS, anti-islet antibodies -IVF, insulin gtt per protocol -Diabetes education -Elevated blood pressure should be monitored outpatient - patient appear to be mildly anxious at present. -If patient's SOB persists after metabolic correction would consider additional workup i.e CTA -Remainder of plan as above Resident Activity Tracking Resident Involvement: Resident Care Provided Care Provided: Adult [facility] Medicine
--- NOTE | 2020-02-01 23:29 | Billing Data ---
Date of Service February 01, 2020 Coding Level of Care Code 44472 Initial Inpt Care Lvl 3
[2020-02-01 23:30] LABS: Potassium 3.8 mmol/L (3.5-5.1)
[2020-02-02] MEDS ORDERED: ALUMINUM/MAGNESIUM SUSP 30 ML UDC PO PRN (01:05)
[2020-02-02] MEDS ORDERED: ONDANSETRON INJ 2 MG/ML 2 ML VIAL IV PRN (01:05)
[2020-02-02] MEDS ORDERED: SODIUM CHLORIDE 0.9% 1000ML 1,000 ML IV SCH (01:15)
[2020-02-02] MEDS ORDERED: GLUCOSE 40% GEL 15 GM TUBE PO PRN (01:15)
[2020-02-02] MEDS ORDERED: GLUCAGON FOR INJ 1 MG VIAL IM PRN (01:15)
[2020-02-02] MEDS ORDERED: DEXTROSE 50% 50 ML SYRINGE IV PRN (01:15)
[2020-02-02] MEDS ORDERED: CARBOHYDRATES FOR HYPOGLYCEMIA PO PRN (01:15)
[2020-02-02] MEDS ORDERED: GLUCOSE 10 TABS/TUBE PO PRN (01:15)
[2020-02-02 01:43] LABS: BUN Creatinine Ratio 8.9 (10-20); Calcium 7.9 mg/dl (8.5-10.1); Creatinine Clr Calc Pharmacy 84.5 ml/min; Est GFR (African American) 71.8; Potassium 3.8 mmol/L (3.5-5.1)
[2020-02-02] MEDS: NORMOSOL-R 1,000 ML IV SCH ×2 (02:14→03:59)
[2020-02-02] MEDS: ACETAMINOPHEN 325 MG TAB PO PRN ×2 (05:34→23:44)
[2020-02-02] MEDS ORDERED: PHARMACY GLYCEMIC MGMT CONSULT PRN (05:38)
[2020-02-02] MEDS ORDERED: POTASSIUM CHLORIDE CRTAB 20 MEQ TABCR PO STA (05:43)
[2020-02-02] MEDS ORDERED: PENDING D5 1/2NS+20mEq KCL IVF SCH (06:00)
[2020-02-02] MEDS ORDERED: D5W AND 1/2NSS + 20MEQ KCL 20 MEQ/1,000 ML BAG IV SCH (06:00)
[2020-02-02] MEDS ORDERED: POTASSIUM CHLORIDE CRTAB 20 MEQ TABCR PO ONE (06:00)
[2020-02-02] MEDS ORDERED: PENDING 1/2NSS+20mEq KCL IVF SCH (06:00)
[2020-02-02 06:36] LABS: BUN Creatinine Ratio 10.7 (10-20); Calcium 7.4 mg/dl (8.5-10.1); Creatinine Clr Calc Pharmacy 98.9 ml/min; Est GFR (African American) 86.9; Magnesium 2.1 mg/dl (1.8-2.4); Phosphorus 1.9 mg/dl (2.5-4.9); Potassium 3.3 mmol/L (3.5-5.1)
[2020-02-02 07:21] LABS: Estimated Average Glucose 128 mg/dl; Hemoglobin A1C 6.1 % (4.5-5.6)
[2020-02-02] MEDS ORDERED: INSULIN ASPART 100 UNITS/ML 3 ML PEN SC SCH (07:30)
[2020-02-02] MEDS ORDERED: PNEUMOCOCCAL Polysaccharide Vaccine 25mcg/0.5mL vial/Syr IM ONE (08:00)
--- NOTE | 2020-02-02 08:43 | Hospitalist Progress Note ---
Date of Service February 02, 2020 Assessment & Plan (1) DKA (diabetic ketoacidoses): Mr. Gildardo Javed is a very polite 30 y/o male with past medical hx of ADHD who presented to [facility] ED for CC of Fatigue and Heart Burn, who presents with DKA and new onset DM. - Suspect DM1. 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 He notes ketosis diet which was high proteins/fats without carbs. He noted carb loading two days prior to illness, He has a strong family history of DM including a brother who is 2 years younger than him who just was diagnosed with diabetes 4 years ago on insulin pump at this time - Will get DM1 workup with autoantibodies of insulin, decarboxylase, - Hgb A1C ordered, Lipid panel shows total cholesterol 333 HDL 26 this likely need to be addressed but once his glucoses are better control. - Hypertension and tachycardia from acute dehydration resolved - Pharmacy Consult placed for insulin management. AG in ED was 23 which improved to 20. Anion gap is now closed Lantus 30 was given insulin drip will be discontinued he will begin teaching with basal bolus insulin - Plate Grinder consulted - No current PCP, will need help with establishing as will need follow up. 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 Acute Kidney Injury - ISABEL of 1.85, no prior baseline but suspect a baseline WNL. Resolved creatinine now 1.2. Hyponatremia -Near normal Code: Full Code DVT ppx: young, fit, ambulatory, low risk for DVT, no treatment currently ordered. transfer to medical floor (2) ISABEL (acute kidney injury): (3) Acute dehydration: (4) Hyponatremia: (5) Elevated creatine kinase: (6) Abnormal ECG: Admission and Anticipated Discharge Date Admission Date: February 01, 2020 Subjective Patient is resting comfortably has no significant complaints he is fairly well versed in diabetes given his significant family history of the same he is open to beginning multiday testing and dosing of insulin Review of Systems Review of Systems: Mild distress and fatigue no headache, blurry or double vision no speech or swallowing issues no chest pain, pressure or palpitations no shortness of breath, cough or wheezes no abdominal pain, nausea or vomiting, diarrhea or constipation no dysuria, hematuria or frequency no focal joint pain or swelling no back pain, CVA tenderness or radicular pain no bruising, bleeding or rashes no focal signs of weakness or numbness or altered sensation no complaints of anxiety or depression. Physical Exam Physical Exam: The patient appeared well nourished and normally developed. Vital signs as documented. Head exam is normocephalic atraumatic no scleral icterus Neck is without JVD, thyromegaly, or carotid bruits. Lungs are clear to auscultation, no focal loss of breath sounds Cardiac exam, Rhythm is regular.. No murmurs, rubs or gallops. Abdominal exam reveals normal bowel sounds, soft non tender, no masses Extremities are nonedematous and both pedal pulses are present Neurologic exam is alert and oriented, no focal loss of strength or sensation Skin is without bruises or rashes Psychologically is without concerns for anxiety or depression. Results & Data Results & Data ([facility]) Vital Signs (Past 12 Hours) Vital Signs Temp Pulse Pulse Resp BP BP Pulse Ox 02/02/20 08:29 87 02/02/20 03:08 98.6 F 99 H 18 120/61 97 02/02/20 00:30 99.0 F 115 H 16 149/79 H 97 02/02/20 00:22 117 H 02/01/20 23:30 99 H 18 189/95 H 100 02/01/20 23:00 99 H 24 167/92 H 100 02/01/20 22:36 102 H 24 164/85 H 100 02/01/20 22:00 97 H 24 170/90 H 99 PG Care Time/CCT Total # of Minutes Spent Total Time Spent with Patient: Total time spent is greater than 50% in coordina tion of care (as documented) at patient's floor/unit and/or counseling patient: Coding Level of Care Code 83639 Subseq Hosp Care Lvl 3 Diagnoses DKA (diabetic ketoacidoses) E11.10 ISABEL (acute kidney injury) N17.9 Acute dehydration E86.0 Hyponatremia E87.1 Elevated creatine kinase R74.8 Abnormal ECG R94.31
[2020-02-02] MEDS ORDERED: POTASSIUM PHOS 3 MMOL/1 ML INFUSION IV STA (08:44)
[2020-02-02] MEDS ORDERED: POTASSIUM PHOSPHATE 21 MMOL in SODIUM CHLORIDE 0.9% 500 ML IV ONE (09:00)
[2020-02-02] MEDS ORDERED: INSULIN GLARGINE SOLOSTAR 100 UNITS/ML 3 ML PEN SC ONE (09:00)
[2020-02-02] MEDS: INSULIN ASPART 100 UNITS/ML 3 ML PEN SC SCH ×6 (09:17→23:35)
[2020-02-02 10:16] LABS: Potassium 3.6 mmol/L (3.5-5.1)
[2020-02-02 10:53] LABS: BUN Creatinine Ratio 9.5 (10-20); Calcium 8.1 mg/dl (8.5-10.1); Creatinine Clr Calc Pharmacy 98.2 ml/min; Est GFR (African American) 86.1; Est GFR (Non-African American) 74.3; Phosphorus 2.1 mg/dl (2.5-4.9)
[2020-02-02 13:28] LABS: BUN Creatinine Ratio 7.9 (10-20); Creatinine Clr Calc Pharmacy 91.2 ml/min; Est GFR (African American) 78.7; Est GFR (Non-African American) 67.9; Potassium 3.2 mmol/L (3.5-5.1)
[2020-02-02 13:29] LABS: Phosphorus 2.5 mg/dl (2.5-4.9)
--- NOTE | 2020-02-02 13:50 | Pharmacy Report ---
Glycemic Control Consultation - Date of Service February 02, 2020 - Scope Scope: Glycemic Pharmacist consulted for glycemic control and to write orders per [facility] inpatient glycemic control protocol. - Objective Weight: 95.6 kg Accuchecks BSG (last 24hrs): 02/01/20 02/01/20 02/01/20 19:25 21:36 21:54 Glucose 429 H* 369 H* POC Glucose 417 H* 02/01/20 02/01/20 02/02/20 22:57 23:53 00:58 Glucose 273 H POC Glucose 355 H* 302 H* 02/02/20 02/02/20 02/02/20 01:01 02:04 03:02 Glucose POC Glucose 257 H 222 H 208 H 02/02/20 02/02/20 02/02/20 05:02 05:21 05:48 Glucose POC Glucose 120 H 96 151 H 02/02/20 02/02/20 02/02/20 05:54 06:07 07:01 Glucose 151 H POC Glucose 143 H 191 H 02/02/20 02/02/20 02/02/20 08:04 08:57 09:18 Glucose 169 H POC Glucose 173 H 164 H 02/02/20 02/02/20 02/02/20 09:59 11:05 13:02 Glucose POC Glucose 152 H 130 H 53 L* 02/02/20 02/02/20 02/02/20 13:03 13:04 13:05 Glucose 81 POC Glucose 112 H 109 H Laboratory Data (last 24hrs): 02/01/20 02/01/20 02/01/20 19:25 21:36 23:02 Potassium 4.5 3.8 D Carbon Dioxide 13 L 13 L Anion Gap 23.0 H 20.0 H Creatinine 1.85 H 1.77 H Est Cr Clr Drug Dosing 69.2 72.3 Beta-Hydroxybutyric Acd TNP 02/02/20 02/02/20 02/02/20 00:58 05:54 09:18 Potassium 3.8 3.3 L 3.6 Carbon Dioxide 16 L 24 23 Anion Gap 16.0 H 7.0 8.0 Creatinine 1.51 H 1.29 1.30 Est Cr Clr Drug Dosing 84.5 98.9 98.2 Beta-Hydroxybutyric Acd 02/02/20 13:03 Potassium 3.2 L Carbon Dioxide 29 Anion Gap 5.0 Creatinine 1.40 Est Cr Clr Drug Dosing 91.2 Beta-Hydroxybutyric Acd HbA1c: Hemoglobin A1c 6.1 % (4.5-5.6) H 02/01/20 19:29 - Recent Pertinent Medications Outpatient Anti-diabetic Regimen: * N/A * A1c = 6.1 % 02/01/20 The patient is currently receiving: * INSULIN INFUSION AT 4.8 UNITS/HR Risk Factors for Insulin Resistance: * IVF: D51/2NS + 20 KCL @ 125 ml/hr * Diet: NPO then switched to T1 diet at lunch - Assessment & Plan Assessment & Plan: ASSESSMENT: * Mr Javed is a newly diagnosed diabetic who presents in DKA. Patient was starting on insulin infusion at 9.6 units/hr -- this was titrated down to 4.8 units/hr. This was steady for several hours this morning until patient abruptly had a low BSG around 1300. This is most likely due to insulin infusion in combination with dose of lantus. * Gave Lantus 30 units x 1 (weight-based stress of 2 full 24 hour dose). Start Lantus 10-15 units SQ BID tomorrow morning. * Novolog weight-based stress of 2 for now. PLAN FOR INPATIENT GLYCEMIC CONTROL: * Basal insulin * Lantus 30 units SQ x 1 then 10-15 units SQ BID * Bolus insulin * NovoLog per scale ACHS or Q6hrs while NPO * Goal Range: Low 110 mg/dL - High 140 mg/dL * Correction Factor: 25 mg/dL/unit * Nutritional / Prandial insulin per carb ratio of 1 unit per 8 grams CHO consumed * Please note that the plan above was derived based on current level of insulin resistance and hospital stress. These recommendations are appropriate for inpatient admission only. Plan of care upon discharge will need to be reassessed to avoid potential outpatient hypo/hyperglycemia. Thank you.
--- NOTE | 2020-02-02 23:04 | Electrocardiogram Report ---
Test Reason : Blood Pressure : / mmHG Vent. Rate : 094 BPM Atrial Rate : 094 BPM P-R Int : 154 ms QRS Dur : 078 ms QT Int : 286 ms P-R-T Axes : 075 027 041 degrees QTc Int : 357 ms Normal sinus rhythm ST elevation, consider early repolarization, pericarditis, or injury T wave abnormality, consider anterolateral ischemia Abnormal ECG No previous ECGs available Confirmed by Flip Lr ([id number]) on 02/02/2020 11:04:03 PM Referred By: REFERRED SELF Confirmed By:Flip Lr
[2020-02-03] MEDS: INSULIN ASPART 100 UNITS/ML 3 ML PEN SC SCH ×5 (03:58→21:32)
[2020-02-03 06:43] LABS: BUN Creatinine Ratio 7.9 (10-20); Creatinine Clr Calc Pharmacy 120.4 ml/min; Est GFR (African American) 110.2
[2020-02-03] MEDS ORDERED: POTASSIUM CHLORIDE CRTAB 20 MEQ TABCR PO STA (06:48)
[2020-02-03] MEDS: INSULIN GLARGINE SOLOSTAR 100 UNITS/ML 3 ML PEN SC SCH ×2 (08:55→21:32)
[2020-02-03] MEDS: POTASSIUM CHLORIDE CRTAB 20 MEQ TABCR PO SCH ×2 (09:13→21:30)
--- NOTE | 2020-02-03 11:12 | Pharmacy Report ---
Glycemic Control Progress Note - Date of Service February 03, 2020 - Scope Glycemic Pharmacist consulted for glycemic control to write orders per [facility] inpatient glycemic control protocol. - Objective Accuchecks BSG(last 24 hours):: 02/02/20 02/02/20 02/02/20 11:05 13:02 13:03 Glucose 81 POC Glucose 130 H 53 L* 02/02/20 02/02/20 02/02/20 13:04 13:05 17:07 Glucose POC Glucose 112 H 109 H 239 H 02/02/20 02/02/20 02/03/20 20:20 23:27 03:50 Glucose POC Glucose 246 H 271 H 238 H 02/03/20 02/03/20 05:59 08:19 Glucose 243 H POC Glucose 263 H HbA1c:: Hemoglobin A1c 6.1 % (4.5-5.6) H 02/01/20 19:29 - Recent Pertinent Medications The patient is currently receiving: * Basal insulin: Lantus 30 units SQ x 1 yesterday * Correctional Insulin: Novolog Correction per scale ACHS Goal Range: Low 110 mg/dL - High 140 mg/dL Correction Factor: 25 mg/dL/unit * Prandial insulin: Per carb ratio of 1 unit per 8 grams CHO consumed - Outpatient Anti-Diabetic Meds N/A - Assessment & Plan ASSESSMENT: * See progress note from 02/03/20 for more background info, in short: * Pt receiving SQ basal bolus insulin regimen for hyperglycemia secondary to baseline DM (patient newly diagnosed) * Patient is currently receiving an average of 61 units of insulin per day + IV insulin until 1300 (running on average at 4.8 units/hr) * 30 units of basal insulin * 31 units of prandial/correctional insulin * BSGs ranging 58 - 281 mg/dl over the past 24hrs * Changes needed to insulin regimen: * AM Fasting BSG = 263 mg/dl. This is above goal range for patient based on inpatient targets and co-morbidities. The patient received full weight- based stress of 2 Lantus dose as a load yesterday. Will now utilize weight- based Lantus dosing based upon BSG. * Post-prandial BSGs are not controlled so tightened to weight-based stress of 3. Low BSG yesterday was from insulin infusion and prolonged checks in between (all per policy) * Total daily dose = ? units. Currently unknown as this is the first day off insulin infusion. PLAN FOR INPATIENT GLYCEMIC CONTROL: * INCREASING Lantus 10-20 units SQ BID (10 units if BSG < 140 mg/dL; 15 units if BSG > 140 mg/dL; 20 units if BSG > 180 mg/dL) * TIGHTENING correction factor to 18 mg/dl/unit * TIGHTENING carb ratio to 1 unit per 6 grams CHO consumed * Continuing goal range of Low 110 mg/dL - High 140 mg/dL * Please note that the plan above was derived based on current level of insulin resistance and hospital stress. These recommendations are appropriate for inpatient admission only. Plan of care upon discharge will need to be reassessed to avoid potential outpatient hypo/hyperglycemia. Thank you.
--- NOTE | 2020-02-03 14:23 | Hospitalist Progress Note ---
Date of Service February 03, 2020 Assessment & Plan (1) DKA (diabetic ketoacidoses): Mr. Gildardo Javed is a very polite 30 y/o male with past medical hx of ADHD who presented to [facility] ED for CC of Fatigue and Heart Burn, who presents with DKA and new onset DM. - Suspect DM1. 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 He notes ketosis diet which was high proteins/fats without carbs. He noted carb loading two days prior to illness, He has a strong family history of DM including a brother who is 2 years younger than him who just was diagnosed with diabetes 4 years ago on insulin pump at this time - admitting team did send DM1 workup with autoantibodies of insulin, decarboxylase, - Hgb A1C only 6.1` likely helped by his extremely low carb diet and avid excercising Lipid panel shows total cholesterol 333 HDL 26 this likely need to be addressed but once his glucoses are better control. - Hypertension and tachycardia from acute dehydration resolved - Pharmacy Consult placed for insulin management. AG in ED was 23. Anion gap is now closed begin teaching with basal bolus insulin - Electronic Publishing Specialist consulted recommend rx at discharge of 4mm 32 g needles at discharge, one touch veriotest strips, and one touch delica lancets( qid ch ecking ) - No current PCP, will need help with establishing as will need follow up. 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 Acute Kidney Injury - ISABEL of 1.85, no prior baseline but suspect a baseline WNL. Resolved creatinine now 1.2. Hyponatremia -Near normal Code: Full Code DVT ppx: young, fit, ambulatory, low risk for DVT, no treatment currently ordered. transfer to medical floor (2) ISABEL (acute kidney injury): (3) Acute dehydration: (4) Hyponatremia: (5) Elevated creatine kinase: (6) Abnormal ECG: biphasic t waves likely from acidosis will recheck Admission and Anticipated Discharge Date Admission Date: February 01, 2020 Subjective Patient is resting comfortably has no significant complaints he is fairly well versed in diabetes given his significant family history of the same he doing we ll learing insulin therapy but his glucoses are not well controlled and will take another day to have better control before going home Review of Systems Review of Systems: Mild distress and fatigue no headache, blurry or double vision no speech or swallowing issues no chest pain, pressure or palpitations no shortness of breath, cough or wheezes no abdominal pain, nausea or vomiting, diarrhea or constipation no dysuria, hematuria or frequency no focal joint pain or swelling no back pain, CVA tenderness or radicular pain no bruising, bleeding or rashes no focal signs of weakness or numbness or altered sensation no complaints of anxiety or depression. Physical Exam Physical Exam: The patient appeared well nourished and normally developed. Vital signs as documented. Head exam is normocephalic atraumatic no scleral icterus Neck is without JVD, thyromegaly, or carotid bruits. Lungs are clear to auscultation, no focal loss of breath sounds Cardiac exam, Rhythm is regular.. No murmurs, rubs or gallops. Abdominal exam reveals normal bowel sounds, soft non tender, no masses Extremities are nonedematous and both pedal pulses are present Neurologic exam is alert and oriented, no focal loss of strength or sensation Skin is without bruises or rashes Psychologically is without concerns for anxiety or depression. Results & Data Results & Data ([facility]) Vital Signs (Past 12 Hours) Vital Signs Temp Pulse Resp BP Pulse Ox 02/03/20 08:03 98.2 F 79 18 121/72 98 PG Care Time/CCT Total # of Minutes Spent Total Time Spent with Patient: Total time spent is greater than 50% in co ordination of care (as documented) at patient's floor/unit and/or counseling patient: Coding Level of Care Code 27814 Subseq Hosp Care Lvl 2 Diagnoses DKA (diabetic ketoacidoses) E11.10 ISABEL (acute kidney injury) N17.9 Acute dehydration E86.0 Hyponatremia E87.1 Elevated creatine kinase R74.8 Abnormal ECG R94.31
[2020-02-03] MEDS ORDERED: diphenhydrAMINE Capsule 25 MG CAP PO PRN (17:28)
[2020-02-03] MEDS ORDERED: diphenhydrAMINE Capsule 25 MG CAP PO ONE (17:28)
[2020-02-04 06:11] LABS: Hematocrit (blood only) 49.4 % (42-52); Hemoglobin 16.7 g/dL (14.0-18.0); Mean Corpuscular Hemoglobin 28.9 pg (25-34); Mean Corpuscular Hgb Conc 33.8 g/dL (32-36); Mean Corpuscular Volume 85.6 fL (80-100); Mean Platelet Volume 9.9 fL (7.4-10.4); Platelet Count 186 K/uL (130-400); RDW Coefficient of Variation 13.9 % (11.5-14.5); RDW Standard Deviation 43.1 fL (36.4-46.3); Red Blood Count 5.77 M/uL (4.7-6.1); White Blood Count 4.57 K/uL (4.8-10.8)
[2020-02-04 06:30] LABS: BUN Creatinine Ratio 9.2 (10-20); Calcium 8.3 mg/dl (8.5-10.1); Creatinine Clr Calc Pharmacy 108.2 ml/min; Est GFR (African American) 96.8; Est GFR (Non-African American) 83.5; Potassium 3.1 mmol/L (3.5-5.1)
[2020-02-04] MEDS: INSULIN ASPART 100 UNITS/ML 3 ML PEN SC SCH ×2 (08:13→13:54)
[2020-02-04] MEDS: INSULIN GLARGINE SOLOSTAR 100 UNITS/ML 3 ML PEN SC SCH (08:14)
[2020-02-04] MEDS: POTASSIUM CHLORIDE CRTAB 20 MEQ TABCR PO SCH (08:14)
[2020-02-04] MEDS ORDERED: POTASSIUM CHLORIDE CRTAB 20 MEQ TABCR PO ONE (12:00)
--- NOTE | 2020-02-04 13:20 | Pharmacy Report ---
Pharmacy Glycemic Short Note 2 - Date of Service February 04, 2020 - Glycemic Short BSG Results (Last 24 hours): 02/03/20 02/03/20 02/04/20 17:11 20:57 05:34 Glucose 126 H POC Glucose 161 H 279 H 02/04/20 02/04/20 08:08 12:19 Glucose POC Glucose 125 H 230 H OUTPATIENT ANTIDIABETIC REGIMEN: * n/a -- newly diagnosed ASSESSMENT: * Mr Javed received ~100 units of insulin yesterday. BSGs were all above goal. * 40 units of basal insulin * 61 units of prandial/correctional insulin * Patient is to be discharged this afternoon. PLAN FOR INPATIENT GLYCEMIC CONTROL: * Hold outpatient oral diabetes medications * Basal insulin * Lantus 20 units SQ BID * Bolus insulin * NovoLog per scale ACHS or Q6hrs while NPO * Goal Range: Low 110 mg/dL - High 140 mg/dL * Correction Factor: 18 mg/dL/unit * Nutritional / Prandial insulin per carb ratio of 1 unit per 6 grams CHO consumed PLAN FOR DISCHARGE: * Patient with suspected Type 1 diabetes (newly diagnosed) after presentation with DKA. HbA1c: 6.1% * Recommended regimen for discharge: * Lantus 40 units daily * Novolog (or equivalent): carb ratio: 1 unit per 5 gm CHO consumed correction factor: 20mg/dL/unit (above 140mg/dL) CDE will provide scale * CDE has been meeting with patient during admission and has been very helpful in ensuring that he is comfortable with discharge plan. * Pt will require close f/u with endocrinology after discharge. His first appt is scheduled for next Tuesday.
--- NOTE | 2020-02-04 13:44 | Discharge Summary ---
Date of Service February 04, 2020 Admission HPI Per Admitting Provider Mr. Gildardo Javed is a 30 y/o male with past medical hx of ADHD who presented to [facility] ED for CC of Fatigue and Heart Burn. He notes fatigue started about 5 days ago Tuesday. 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 He was on a ketosis diet for the past 4 weeks until Tuesday when he was carbohydrate loading Tuesday-Tuesday. He notes he has done this routine over 50 times in the past without incident. He notes that he became extremely fatigued and started requiring more sleep starting Tuesday. He notes he even slept after taking his Ritalin which was atypical. He notes that he usually drinks one galloon of water per day, but had polydipsia and was requiring 2-3 Galloons of water per day. He notes he had polyuria as well. He noted feeling short of breath with activity and had very bad heartburn with associated nausea and vomiting, which made him to come here to [facility] ED. He notes he was concerned that heartburn could've been an ID bc of family history of high cholesterol. He spoke with his two sisters this week who are pharmacists who said symptoms were related to stress from high demand of educational duties (Studies Computer science), tutoring, fitness activities, which delayed him seeking medical evaluation. He notes a very strong family history of diabetes including both his parents and other grandparents. In the ED, he received IV Fluids 1L Bolus and normosol 125ml/hr along with insulin drip and Maalox which has help to provide relief from heart burn. He notes that he already feels improved with treatment thus far. Iniital Lab Values in ED, Na 126, K 4.5, Cl 90, CO2 13, Creatinine 1.85, Glucose 439, AG 23, CK 885, B-Hydroxy TNP. UA showed ketones, glucose. He was COVID tested in the ED and was negative. Principal Diagnosis DKA, new onset type I DMI Discharge Exam Constitutional WD/WN, vitals as above Respiratory normal respiratory effort, lungs clear to auscultation Cardiovascular RRR, no murmur, no edema Gastrointestinal (Abdomen) normal bowel sounds, soft, nontender, no hepatosplenomegaly Musculoskeletal no cyanosis or clubbing, extremities motor strength 5/5 Skin no rashes, warm and dry Neurologic moves all extremities and awake Psychiatric A+Ox3, euthymic affect Discharge Data Allergies Allergy/AdvReac Type Severity Reaction Status Date / Time No Known Allergies Allergy Unverified 02/01/20 20:55 Consultations 02/01/20 21:27 ED Decision to Admit Stat Diabetes Follow up Diabetes Follow-up Needed for Newly Diagnosed Diabetes Hospital Course (1) DKA (diabetic ketoacidoses): Mr. Gildardo Javed is a very polite 30 y/o male with past medical hx of ADHD who presented to [facility] ED for CC of Fatigue and Heart Burn, who presents with DKA and new onset DM. - Suspect DM1. 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 He notes ketosis diet which was high proteins/fats without carbs. He noted carb loading two days prior to illness, He has a strong family history of DM including a brother who is 2 years younger than him who just was diagnosed with diabetes 4 years ago on insulin pump at this time - admitting team did send DM1 workup with autoantibodies of insulin, decarboxylase, - Hgb A1C only 6.1` likely helped by his extremely low carb diet and avid excercising Lipid panel shows total cholesterol 333 HDL 26 this likely need to be addressed but once his glucoses are better control. - Hypertension and tachycardia from acute dehydration resolved - Pharmacy Consult placed for insulin management. AG in ED was 23. Anion gap is now closed oxygen therapy technician gave patient instruction on self administration of insulin and patient verbalized comfort in doing so. Per pharmacy and milk condenser recommendation will go home with Lantus 40 units daily Novolog (or equivalent): carb ratio: 1 unit per 5 gm CHO consumed, correction factor: 20mg/dL/unit (above 140mg/dL) oxygen therapy technician also went over the sliding scale with the patient. - No current PCP - will establish with [facility] - will have patient recheck labs on Tuesday (2) Abnormal ECG: T wave inversion in lateral leads on recheck. Asymptomatic. recommend follow up with pcp. (3) ISABEL (acute kidney injury): - ISABEL of 1.85, no prior baseline but suspect a baseline WNL. Resolved (4) Hypokalemia: Replaced, will supplement for the next week as patient has been running low over the past few days. 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 Nam Underwood.) Turner Covington MD [Primary Care Provider] - 02/11/20 10:30 am (A new PCP/hospital follow up appointment has been made for you with Dr. Covington on February 10 at 10:30am. His office is located in the building in front of the hospital.) Diet: Carb Count or DM1 Ambulatory Orders: Basic Metabolic Panel (Routine) Timeframe: [id number] Location: Determined by Patient Ordered By: Carolina Stern Attending Provider Instructions: (1) DKA (diabetic ketoacidoses): Your new insulin regimen is as follows: Because you have only take 15 units of Lantus total today, please take 15 units tonight and then start 40 units daily tomorrow morning around 10 or 11 am. You will then take 40 units every morning after that. Novolog 1 unit for every 5 grams of carbohydrate + sliding scale (with meals only) for blood sugars above 140 (see below) If you are consistently running above 250 please call the [facility] endocrinology office for further recommendation. Blood Sugar Additional Novolog Coverage 140 or less no extra 141 160 + 1 unit 161 180 + 2 units 181 200 + 3 units 201 220 + 4 units 221 240 + 5 units 241 260 + 6 units 261 280 + 7 units 281 300 + 8 units 301 320 + 9 units 321 340 + 10 units 341 360 + 11 units 361 380 + 12 units 381 400 + 13 units Above 400 + 14 units and call provider You will need to get labs drawn on Tuesday Please take daily potassium supplement for the next week (2) Abnormal EKG Please have your primary care provider repeat and ekg at your follow up. Pending Studies at Discharge: Yes Studies:: DMI antibody panel Stand-Alone Forms: My [facility], Smoking Cessation Medications and DC Order Prescriptions: New Lantus Solostar U-100 Insulin 100 unit/mL (3 mL) Insulin Pen 40 unit SC DAILY Qty: 1 RF: 2 insulin lispro [Humalog KwikPen Insulin] 100 unit/mL insulin pen See Rx Instructions .ROUTE .COMPLEX Qty: 3 RF: 3 potassium chloride 20 mEq tablet extended release 20 meq PO DAILY Qty: 7 RF: 0 Continued methylphenidate HCl 20 mg Tablet Extended Release See Rx Instructions .ROUTE .COMPLEX RF: 0 Discharge Orders: Discharge Order (Routine); Ordered 02/04/20 Ordered By: Carolina Goetz/Other Patient Handouts: Hypoglycemia (Low Blood Sugar), Managing Type 1 Diabetes Admission Data Admit Date/Time: 02/01/20 22:56 Attending Provider: Isaac Hess Admit Provider: Earl Lau Primary Care Provider: Turner Covington Other Providers: Phylicia Constantino Other Interventions: Discharge Summary Assessment (RN) Last Done: 02/04/20 14:38 Supervising Physician Co-Signing Physician Notes Patient seen and examined on the day of discharge. I agree with the discharge summary by Carolina CHRISTINE. I have reviewed the chart including labs, imaging and plans for discharge. patient doing great, he feels confident he can manage sugars until he can follow up with PCP and then endocrinology sugars have been modestly well controlled on basal bolus regimen he plans to follow a low carb diet, he was already on Keto diet - New onset diabetes mellitus with diabetic ketoacidosis anion gap closed, acidosis resolved treated initially with insulin infusion, transitioned to basal/bolus regimen with Lantus/Humalog will get close follow up with [facility] Family practice residency program referral placed for endocrinology of note, antibody testing for type I DM sent out, follow up results with PCP and endocrinology for their interpretation Coding Level of Care Code D/C Day Management >30 mins Diagnoses DKA (diabetic ketoacidoses) E11.10 Abnormal ECG R94.31 ISABEL (acute kidney injury) N17.9 Hypokalemia E87.6 Acute dehydration E86.0 Hyponatremia E87.1 Elevated creatine kinase R74.8
--- NOTE | 2020-02-05 05:55 | Electrocardiogram Report ---
Test Reason : Blood Pressure : / mmHG Vent. Rate : 071 BPM Atrial Rate : 071 BPM P-R Int : 148 ms QRS Dur : 088 ms QT Int : 416 ms P-R-T Axes : 081 031 024 degrees QTc Int : 452 ms Poor data quality, interpretation may be adversely affected Normal sinus rhythm Nonspecific ST and T wave abnormality Abnormal ECG When compared with ECG of 01-FEB-2020 19:13, Artifact is now present Confirmed by Flip Lr ([id number]) on 02/05/2020 5:55:03 AM Referred By: REFERRED SELF Confirmed By:Flip Lr
--- NOTE | 2020-02-05 06:08 | Electrocardiogram Report ---
Test Reason : Blood Pressure : / mmHG Vent. Rate : 089 BPM Atrial Rate : 089 BPM P-R Int : 140 ms QRS Dur : 082 ms QT Int : 318 ms P-R-T Axes : 065 036 002 degrees QTc Int : 386 ms Normal sinus rhythm Abnormal ECG When compared with ECG of 04-FEB-2020 06:57, Artifact has improved Confirmed by Flip Lr ([id number]) on 02/05/2020 6:07:58 AM Referred By: REFERRED SELF Confirmed By:Flip Lr
[2020-02-09 20:27] LABS: C-Peptide 0.26 ng/mL (0.80-3.85); Glutamic Acid Decarboxylase 65 <5 IU/mL (<5)
== END 2020-02-04 15:33 | disposition home or self-care (01) | DRG 638 ==
LOC: ED 16:37 → SUATTDRO 22:56 → 2S 22:56 → 3E 02-02 14:55